=== PATIENT | female | born 1990 | race Caucasian/White ===

== ENCOUNTER 2017-02-26 20:22 | Emergency (ER) | payer BC ==
[~2017-02-26] VITALS: Ht 167.6 cm; Wt 86.2 kg
[2017-02-26] MEDS ORDERED: LORA10TA3 PO (20:44)
[2017-02-26] MEDS ORDERED: FEXO180T81 PO (20:45)
--- NOTE | 2017-02-26 20:50 | PHYS DOC ---
Past History Additional Past Medical Histor: seasonal allergies Smoking: Non-smoker Alcohol Use: None Drug Use: None Adult General Chief Complaint Chief Complaint: ALLERGIC REACTION HPI HPI He is a pleasant 26-year-old female with no major medical problems other than seasonal allergies for which she takes Ely which she needs presents with relatively sudden onset of swelling to her eye face and itching to her hands and legs. Patient was at her sister's house handling a cat which she noted she is allergic to. She does not have this reaction. When driving home by the [employer] and [employer] noted in the mirror localized swelling to her high and the whiteness of her high as well as to her cheek. She denies any facial pain, change in vision, foreign body sensation in her eye, headache, problems breathing, change in voice, or other systemic complaints of abdominal pain nausea or vomiting. Patient denies any joint pain in the other rash other than the redness and urticaria on her hands and legs. She is not taking any medications prior to coming. She has had a local reaction like this in the past but not as severe Review of Systems Review of Systems Constitutional: Denies fever or chills [] Eyes: Denies change in visual acuity, planes localized redness and swelling to the white part of her eye without eye pain or eye loss of vision HENT: Denies nasal congestion or sore throat [] Respiratory: Denies cough or shortness of breath [] Cardiovascular: No additional information not addressed in HPI [] GI: Denies abdominal pain, nausea, vomiting, bloody stools or diarrhea [] : Denies dysuria or hematuria [] Musculoskeletal: Denies back pain or joint pain [] Integument: Localized redness to her hands and legs described as urticaria Neurologic: Denies headache, focal weakness or sensory changes [] Endocrine: Denies polyuria or polydipsia [] Physical Exam Physical Exam Constitutional: Well developed, well nourished, no acute distress, non-toxic appearance. [] HENT: Normocephalic, atraumatic, bilateral external ears normal, oropharynx moist, no oral exudates, nose normal. [] Eyes: PERRLA, EOMI, conjunctiva on the left very injected with marginal ecchymosis. Extraocular movements are intact no obvious drainage Neck: Normal range of motion, no tenderness, supple, no stridor. [] Cardiovascular:Heart rate regular rhythm, no murmur [] Lungs & Thorax: Bilateral breath sounds clear to auscultation [] Skin: Warm, dry, urticarial rash noted on the backs of the hands and legs. No vesicles, no consolidations on the palms and soles, no joint swelling or purpura. Back: No tenderness, no CVA tenderness. [] Extremities: No tenderness, no cyanosis, no clubbing, ROM intact, no edema. [] Neurologic: Alert and oriented X 3, normal motor function, normal sensory function, no focal deficits noted. [] Psychologic: Affect normal, judgement normal, mood normal. [] EKG EKG [] Radiology/Procedures Radiology/Procedures [] Course & Med Decision Making Course & Med Decision Making Pertinent Labs and Imaging studies reviewed. (See chart for details) A she was given IV Benadryl by mouth prednisone by mouth Pepcid with marked improvement of her symptoms. She is very sad that her symptoms feel markedly better itching is decreased redness have improved patient denies any shortness of breath change in voice or other complaints. We talked about the use of epinephrine and why it went may be needed for her in the future if the symptoms become more more severe. At this juncture she's been diagnosed with allergic conjunctivitis and allergic reaction secondary to cat dander advise follow-up with an research physicist and her primary care doctor talk about desensitization and treatment in the future. Impression allergic conjunctivitis, allergic reaction secondary to cat dander Disposition: Follow up with her PCP referral to an research physicist 12-24 hours if symptoms continue. Asked to return for any new or increasing symptoms of wheezing and shortness of breath or change in voice. [] Dragon Disclaimer Dragon Disclaimer This chart was dictated in whole or in part using Voice Recognition software in a busy, high-work load, and often noisy Emergency Department environment. It may contain unintended and wholly unrecognized errors or omissions. Departure Departure: Impression: Primary Impression: Allergic reaction Additional Impression: Chemosis of left conjunctiva Disposition: HOME, SELF-CARE Condition: IMPROVED Referrals: DIGNA WOOD MD (PCP) Patient Instructions: Allergic Conjunctivitis, Allergies, Generic Additional Instructions: He is return for any new or increasing symptoms any shortness of breath change in voice, pain blood in her stool or if you have any questions or concerns. I would advise on what appear primary care doctor as well as her research physicist locally to improve the treatment of her symptoms. Scripts Epinephrine (EPIPEN 2-VICKY) 0.3 Mg/0.3 Ml Auto.injct 0.3 MG IJ when needed for 1 Day, #2 SYR Prov: JON SALCEDO MD 02/26/17 Famotidine (PEPCID) 20 Mg Tablet 1 TAB PO BID, #20 TAB 2 Refills Prov: JON SALCEDO MD 02/26/17 Prednisone (PREDNISONE) 20 Mg Tablet 3 TAB PO DAILY for 5 Days, #15 TAB Prov: JON SALCEDO MD 02/26/17 Diphenhydramine Hcl (BENADRYL) 25 Mg Capsule 25 MG PO QID for 7 Days, #28 CAP Prov: JON SALCEDO MD 02/26/17 Problem Qualifiers JON SALCEDO MD February 26, 2017 20:50
[2017-02-26] MEDS ORDERED: diphenhydrAMINE 50 MG/ML VIAL IM ONE (21:15)
[2017-02-26] MEDS ORDERED: FAMOTIDINE 20 MG TABLET PO ONE (21:15)
[2017-02-26] MEDS ORDERED: predniSONE 20 MG TABLET PO ONE (21:15)
[2017-02-26] MEDS ORDERED: FAMO-63 PO (21:23)
[2017-02-26] MEDS ORDERED: DIPH25CA58 PO (21:23)
[2017-02-26] MEDS ORDERED: EPIN0.3A4 IJ (21:23)
[2017-02-26] MEDS ORDERED: PRED20TA PO (21:23)
== END 2017-02-26 21:30 | disposition home or self-care (01) ==
LOC: ER 20:22
DX: J30.81 Allergic rhinitis due to animal (cat) (dog) hair and dander (principal); H11.422 Conjunctival edema, left eye
CPT/HCPCS: 96372; 99283; J1200; J7512